=== PATIENT | female | born 1950 ===

== ENCOUNTER 2023-01-13 17:56 | Outpatient (NON) | payer MEDICARE, SELFPAY ==
[2023-01-13 19:10] LABS: Appearance Urine Cloudy (Clear); Bilirubin Urine Negative (Negative); Blood Urine 2+ (Negative); Color Urine Light Yellow (Yellow); Glucose Urine UA Negative (Negative); Ketones Urine Negative (Negative); Leukocyte Esterase Ur 3+ LEU/UL (Negative); Nitrate Urine Negative (Negative); Protein Urine Trace (Negative); Specific Grav Ur <= 1.005 (1.010-1.020); Urobilinogen Urine 0.2 mg/dL (0.2-1.0); pH Urine 6.5 (5.0-8.0)
[2023-01-13 19:16] LABS: Add Urine Microscopic? YES; Renal Epithelial Cells Urine Few /hpf; Squamous Epithelial Cell Urine Few /hpf (Few); WBC Urine 31-50 /hpf (0-3)
[2023-01-13 19:17] LABS: Bacteria Urine 2+ /hpf
== END 2023-01-13 17:57 | disposition home or self-care (01) ==
LOC: CHSLAB 18:06
PROVIDERS: Visit Provider Family Medicine
DX: R82.90 Unspecified abnormal findings in urine (principal)
CPT/HCPCS: 81001; 87077; 87086; 87088; 87186